=== PATIENT | male | born 1965 | race Caucasian/White ===

== ENCOUNTER 2018-05-20 20:08 | Inpatient (IN) | payer BC ==
[2018-05-20 21:42] LABS: CKMB 1.6 ng/mL (0-6.6); Troponin I Less than 0.010 ng/mL (< 0.028)
[2018-05-21 00:50] LABS: Troponin I Less than 0.010 ng/mL (< 0.028)
[2018-05-21] MEDS ORDERED: Ondansetron PF 4 MG/2 ML Vial IVP PRN (00:56)
[2018-05-21] MEDS ORDERED: Ondansetron ODT 4 MG TAB SL PRN (00:56)
[2018-05-21] MEDS ORDERED: Acetaminophen 325 MG TAB PO PRN ×2 (00:56→16:38)
[2018-05-21 02:57] VITALS: BMI 36.6
[2018-05-21 04:08] LABS: Troponin I Less than 0.010 ng/mL (< 0.028)
[2018-05-21] MEDS: Sulfameth/Trimethoprim SS 400-80MG TAB PO SCH (10:33)
[2018-05-21] MEDS: Citalopram 20 MG TAB PO SCH (10:33)
[2018-05-21] MEDS: Montelukast Sodium 10 mg Tablet PO SCH (10:33)
[2018-05-21] MEDS ORDERED: Dextrose 5% in Water 1,000 ML IV PRN (12:33)
[2018-05-21] MEDS ORDERED: Dextrose 50% Abboject 50 ML SYRINGE IVP PRN (12:33)
[2018-05-21] MEDS: HumaLOG 300 UNITS/3 ML VIAL SC PRN (13:09)
[2018-05-21] MEDS ORDERED: Acetaminophen 325 MG TAB ONE (16:45)
[2018-05-21] MEDS ORDERED: Non-Formulary Item 1 EACH (Metformin Hcl [Metformin Hcl] 1,000 MG) PO SCH (17:00)
[2018-05-21] MEDS: metFORMIN 500 MG TAB PO SCH (17:39)
[2018-05-21] MEDS ORDERED: Atorvastatin Calcium 40 MG TAB PO SCH (21:00)
[2018-05-21] MEDS ORDERED: Ezetimibe 10 MG TAB PO SCH (21:00)
[2018-05-21] MEDS ORDERED: Lisinopril 10 MG TAB PO SCH (21:00)
[2018-05-22] MEDS: HumaLOG 300 UNITS/3 ML VIAL SC PRN ×2 (07:45→10:54)
--- NOTE | 2018-05-22 07:49 | HP ---
PRIMARY CARE PROVIDER: Cris Driscoll MD CHIEF COMPLAINT: Palpitations. HISTORY OF PRESENT ILLNESS: Mr. Wetzel is a pleasant 53-year-old gentleman, who was seen at [facility] on May 21, 2018, following transfer from [place] [facility]. He was preparing for [employer] in [place] yesterday when he felt heart thump in his chest and then prior to his heart race. He reports shortness or breath and lightheadedness soon after the palpitations started, but those symptoms have resolved. He drove to the emergency room at [place]. There, he was found to be in supraventricular tachycardia and was transferred to [facility] for further management. The patient reports that he took Augmentin recently for sinus infection. He is currently on suppressive treatment with Bactrim because of recurrent sinus infection. REVIEW OF SYSTEMS: All other systems reviewed and found to be negative. PAST MEDICAL HISTORY: 1. Hypertension. 2. Dyslipidemia. 3. Diabetes mellitus type 2. PAST SURGICAL HISTORY: None. SOCIAL HISTORY: The patient denies tobacco use, alcohol use, or recreational drug use. FAMILY HISTORY: Significant for myocardial infarction in his father. ALLERGIES: ERYTHROMYCIN. CURRENT MEDICATIONS: 1. Atorvastatin 40 mg at bedtime. 2. Celexa 40 mg daily. 3. Nexium 20 mg daily. 4. Zetia 10 mg at bedtime. 5. Linagliptin 5 mg daily. 6. Victoza 1.8 mg subcutaneously at bedtime. 7. Lisinopril 10 mg at bedtime. 8. Metformin 1000 mg two times a day. 9. Toprol XL 50 mg daily. 10. Montelukast 10 mg daily. 11. Oxymetazoline nasal spray as needed. 12. Bactrim 1 tablet daily. PHYSICAL EXAMINATION: GENERAL: On examination, Mr. Wetzel is awake and alert, not in acute distress. VITAL SIGNS: Blood pressure 120/62, pulse 94, respiratory rate 18, and oxygen saturation 97% on room air. He is afebrile. He is obese, with a BMI of 36.7. EYES: No scleral icterus. No conjunctival pallor. ENT: Moist mucosal membranes. No oropharyngeal erythema or exudates. NECK: Supple, nontender. Trachea is midline. RESPIRATORY: Accessory muscles of breathing are not active. Chest wall movements are symmetric bilaterally. Lungs are clear to auscultation without wheeze, rhonchi, or crepitations. CARDIOVASCULAR: S1 and S2 are heard, regular. Peripheral pulses palpable. ABDOMEN: Soft, nontender. Bowel sounds heard. No hepatomegaly. No splenomegaly. NEUROLOGIC: Cranial nerves 2 through 12 intact. Deep tendon reflexes 2+. MUSCULOSKELETAL: Power is 5/5 in all 4 extremities. SKIN: No rashes or subcutaneous nodules. LYMPHATICS: No cervical lymphadenopathy. PSYCHIATRIC: Normal mood, normal affect. The patient is oriented to person, place, and time. LABS AND INVESTIGATIONS: Mr. Wetzel's labs and investigations were reviewed. I reviewed his electrocardiogram done at [place], which shows supraventricular tachycardia. Followup electrocardiogram showed sinus tachycardia, no ST-T changes to suggest an acute coronary syndrome. I also reviewed his chest x-ray, which does not show any pulmonary infiltrates. He has normal troponin I, normal white count, normal hemoglobin, normal platelet count. Mildly decreased sodium of 134, mildly elevated anion gap of 21, normal blood urea nitrogen, normal creatinine. Normal liver profile and mildly elevated calcium level of 10.5. ASSESSMENT AND PLAN: Mr. Wetzel is a pleasant 53-year-old gentleman, who was seen at [facility] on May 21, 2018. His problem list includes; 1. Supraventricular tachycardia: Mr. Wetzel will be admitted to the hospital for further management. He will be monitored on telemetry. We will check 2D echocardiogram. We will consult Cardiology Service for opinion and help with management. 2. Hypertension: Blood pressure is currently controlled. We will resume his home medications. 3. Dyslipidemia: We will continue statin. 4. Hyponatremia: Mild, likely asymptomatic. 5. Hypercalcemia: Mild, we will recheck. 6. Diabetes mellitus type 2: We will continue home medications and start Accu-Chek and insulin sliding scale. Many thanks for allowing me to participate in your patient's care. Please feel free to contact me with any questions or concerns. LEVEL OF RISK: High. LEVEL OF COMPLEXITY: High. Job ID: [id number]
[2018-05-22] MEDS: Montelukast Sodium 10 mg Tablet PO SCH (09:13)
[2018-05-22] MEDS: Citalopram 20 MG TAB PO SCH (09:13)
[2018-05-22] MEDS: Sulfameth/Trimethoprim SS 400-80MG TAB PO SCH (09:13)
[2018-05-22] MEDS: metFORMIN 500 MG TAB PO SCH (09:14)
[2018-05-22 11:49] VITALS: BP 142/78; TEMP 98.9
--- NOTE | 2018-05-22 22:47 | CON ---
DATE OF CONSULTATION: 05/22/2018 ELECTROPHYSIOLOGY CONSULTATION REASON FOR CONSULTATION: Supraventricular tachycardia. PRIMARY CARE PROVIDER: Cris Driscoll MD HISTORY OF PRESENT ILLNESS: Mr. 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 He was in [place] yesterday, when he began to feel some fluttering in his chest. He shortly thereafter began to experience dizziness and shortness of breath. His heart began to race and his symptoms subsided, but his heart continued to race. He drove to the emergency room in [place] and was found to be in supraventricular tachycardia in the 180 range and was transferred to [facility] for further evaluation and treatment. Actually while he was in the ER at [place], he was given 3 doses of adenosine 6 mg, 6 mg, and then finally 12 mg, which converted him and restored a normal sinus rhythm. Mr. Wetzel was overall in his usual state of health, but had some recurrent sinus infections for which he was on Bactrim. Other than that, he had no recent heart or health concerns. He has never had heart racing or palpitations like this in the past, but has suffered from anxiety and panic attacks that would have associated heart racing and palpitations that would subside with his anxiety. They have never been rapid or sustained as this episode. He would occasionally experience heart rates up to 130 to 140 beats per minute. Again, this is in the remote past of 15 plus years ago. REVIEW OF SYSTEMS: A 12-point review of systems was conducted and is negative except as listed above in the HPI. PAST MEDICAL HISTORY: 1. Hypertension. 2. Dyslipidemia. 3. Type 2 diabetes. 4. History of anxiety and panic attacks. SOCIAL HISTORY: Negative for alcohol, tobacco, or illicit drug use. Professor at [employer]. FAMILY HISTORY: Positive for myocardial infarction with his father. Negative for sudden cardiac . ALLERGIES: ERYTHROMYCIN. HOME MEDICATIONS: Include: 1. Atorvastatin 40 mg at bedtime. 2. Celexa 40 mg daily. 3. Nexium 20 mg daily. 4. Zetia 10 mg at bedtime. 5. Linagliptin 5 mg daily. 6. Victoza 1.8 mg subcutaneously at bedtime. 7. Lisinopril 10 mg at bedtime. 8. Metformin 1000 mg two times a day. 9. Toprol XL 50 mg daily. 10. Montelukast 10 mg daily. 11. Oxymetazoline nasal spray as needed. 12. Bactrim daily. PHYSICAL EXAMINATION: VITAL SIGNS: Most recent vital signs; temperature 98.9, pulse 98, blood pressure 142/78, respirations 20, oxygen is 99% on room air. GENERAL: The patient is alert and oriented. Speech is clear. Affect is appropriate. HEENT: He is normocephalic and atraumatic. Sclerae anicteric. EOMs are intact. Oral mucosa is moist and pink. NECK: Supple without jugular venous distention. HEART: Heart rate is regularly regular with crisp S1 and S2. PMI is nondisplaced. LUNGS: Clear to auscultation bilaterally without wheezes, crackles, or rhonchi. ABDOMEN: Obese, soft, nontender without palpable masses. Hepatojugular reflux is negative. EXTREMITIES: Warm and dry to touch without clubbing, cyanosis, or edema. NEUROLOGIC: Grossly intact and nonfocal with cranial nerves 2 through 12, and his gait is stable. LABORATORY DATA: EKG largely reflects sinus rhythm, although a single 12-lead from when he was transferred and reflects narrow complex rapid SVT, likely AVNRT at a rate of 188 beats per minute. Hematology was reviewed and unremarkable. Chemistry; potassium 3.6, creatinine 1.12, ALT and AST were within normal limits. Troponin was negative. IMPRESSION: 1. 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 2. Hypertension. RECOMMENDATIONS: We discussed supraventricular tachycardia treatment options and process with Mr. Wetzel. We discussed treating this medically with AV timmy blocking agents, powerful antiarrhythmics versus ablation. I did offer him an ablation procedure tomorrow, but at this time in his school year he is unable to accommodate that with this schedule as it nears the end of the semester. At this time, he favors increasing his betablocker as tolerated to prevent recurrence and followup as an outpatient in our clinic in the early part of the New Year to plan and we will forward with an ablation and EP study. He was taking metoprolol 50 mg at home. We will increase his Toprol to 100 mg p.o. daily if tolerated, otherwise he can try 75 mg. This was discussed with the hospitalist as well. Thank you for allowing us to participate in the care of this patient. Job ID: [id number]
--- NOTE | 2018-05-23 01:56 | DIS ---
DATE OF ADMISSION: 05/21/2018 DATE OF DISCHARGE: 05/22/2018 PRIMARY CARE DOCTOR: Cris Driscoll MD DISCHARGE DIAGNOSIS: Supraventricular tachycardia. CONDITION OF PATIENT ON THE DAY OF DISCHARGE: Stable. I assessed Mr. Wetzel on the day of discharge. He denies any chest pain or shortness of breath. Vital signs are stable. S1 and S2 are heard, regular. Lungs are clear to auscultation bilaterally. DISCHARGE MEDICATIONS: 1. Oxymetazoline nasal spray has been discontinued. 2. He has been advised by Electrophysiology Service to increase his metoprolol to 75 mg 2 times a day, if his blood pressure tolerates. Otherwise, no change was made to his pre-admission home medications as dictated on my history and physical note dated May 21, 2018. CONSULTATIONS DURING THIS HOSPITALIZATION: 1. Electrophysiology, Dr. Molina. 2. Cardiology, Dr. Schumacher. HISTORY OF HOSPITAL COURSE: Mr. Wetzel is a pleasant 53-year-old gentleman, who was admitted to [facility] on May 21, 2018 for supraventricular tachycardia. Please refer to my history and physical note dated May 21, 2018 for further details. He had converted to supraventricular tachycardia shortly prior to arrival at this facility. He had 2D echocardiogram, which showed left ventricular ejection fraction of 50% to 55%, E/A flow reversal, suggestive of diastolic dysfunction, mild mitral regurgitation, and mild tricuspid regurgitation. He was seen by Cardiology and Electrophysiology Services. He was advised ablation. However, Mr. Wetzel did not wish to stay in the hospital because he had to attend to other matters. He has been cleared for discharge by Electrophysiology Service and they will follow with him to arrange for ablation as an outpatient. His lowest blood pressure during this hospitalization was 111/56. As mentioned, he has been advised to try to increase his metoprolol dose to 75 mg 2 times a day and keep track of his blood pressure and heart rate 3 times a day and shows the readings to his primary care provider. Many thanks for allowing me to participate in your patient's care. Please feel free to contact me with any questions or concerns. DISCHARGE DESTINATION: Home. TOTAL AMOUNT OF TIME SPENT COORDINATING THIS DISCHARGE: 31 minutes. Job ID: [id number]
== END 2018-05-22 15:08 | disposition home or self-care (01) | DRG 309 ==
LOC: ERS 20:08 → 2SE 05-21 00:50
PROVIDERS: ADMIT Internal Medicine; ATTEND Internal Medicine
PROC: B246ZZZ Ultrasonography of Right and Left Heart (ICD-10-PCS; principal; 2018-05-21)
DX: I47.1 Supraventricular tachycardia (principal); E87.1 Hypo-osmolality and hyponatremia; I10 Essential (primary) hypertension; E78.5 Hyperlipidemia, unspecified; E11.9 Type 2 diabetes mellitus without complications; Z79.84 Long term (current) use of oral hypoglycemic drugs; E83.52 Hypercalcemia; F41.0 Panic disorder [episodic paroxysmal anxiety]
CPT/HCPCS: 36415; 36416; 84484; 85379; 93005; 93306; 96360

== ENCOUNTER 2018-07-10 06:31 | Outpatient (CLI) | payer BC ==
[2018-07-10 14:15] LABS: Hemoglobin 16.6 g/dL (14.0-18.0); Mean Corpuscular HGB CONC 33.7 g/dL (32.0-36.0); Mean Corpuscular Hemoglobin 29.2 pg (27.0-31.0); Mean Corpuscular Volume 86.7 fL (78.0-98.0); Mean Platelet Volume 8.3 fL (7.4-10.4); Platelet Count 226 thou/uL (130-400); RBC Distribution Width 12.7 % (11.5-14.5); Red Blood Cell (RBC) Count 5.66 mill/uL (4.70-6.10); White Blood Cell (WBC) Count 6.7 thou/uL (4.8-10.8)
[2018-07-10 14:22] LABS: PTT 25.3 SEC (22.9-36.1); Prothrombin Time 13.3 SEC (12.0-14.7)
[2018-07-10 14:36] LABS: Anion Gap 17 mmol/L (10-20); BUN (Urea Nitrogen) 19 mg/dL (8.4-25.7); Calc. Creatinine Clearance 0 mL/min (70-130); Calcium 10.3 mg/dL (7.8-10.44); Carbon Dioxide 18 mmol/L (22-29); Chloride 102 mmol/L (98-107); Estimated GFR-MDRD 74; Glucose 289 mg/dL (70-105); Potassium 4.2 mmol/L (3.5-5.1); Sodium 133 mmol/L (136-145)
== END 2018-07-10 06:32 | disposition home or self-care (01) ==
LOC: LABBT 06:31
PROVIDERS: ATTEND Internal Medicine Cardiovascular Disease
DX: Z01.818 Encounter for other preprocedural examination (principal); I47.1 Supraventricular tachycardia
CPT/HCPCS: 80048; 85027; 85610; 85730; 93005; 93010

== ENCOUNTER 2018-07-14 07:13 | Day surgery (SDC) | payer BC ==
[2018-07-10 13:17] VITALS: BMI 36.9
[2018-07-14] MEDS ORDERED: Midazolam HCl 2 mg/2 ml Vial IVP SCH (08:45)
[2018-07-14] MEDS ORDERED: Midazolam HCl 2 mg/2 ml Vial ONE ×2 (08:58→10:17)
[2018-07-14] MEDS ORDERED: Heparin 10,000 UNITS/1 ML VIAL ONE (09:01)
[2018-07-14] MEDS ORDERED: Meperidine HCl/PF 25 MG/ML VIAL ONE (10:17)
[2018-07-14] MEDS ORDERED: Isoproterenol 0.2 MG/1 ML AMP ONE ×2 (11:09)
[2018-07-14] MEDS ORDERED: PROPOFOL 200 MG/20 ML VIAL ONE (12:16)
[2018-07-14] MEDS ORDERED: Lidocaine 1% PF 5 ML VIAL ONE (12:16)
--- NOTE | 2018-07-14 18:19 | OP ---
DATE OF PROCEDURE: 07/14/2018 This is an electrophysiology study and radiofrequency ablation report. PRIMARY CARE PHYSICIAN: Cris Driscoll MD REASON FOR PROCEDURE: Mr. Wetzel is a 53-year-old man with history of palpitations and EKG documented adenosine-terminable SVT. He is here for EP study and ablation procedure. DESCRIPTION OF PROCEDURE: The patient received propofol by Anesthesia specialist. After adequate level of sedation achieved, the left and right femoral venous area was prepped, draped, anesthetized with subcutaneous lidocaine and with ultrasound guidance, both veins were cannulated x2. From the left femoral vein, 6 and an 8-Kenyan sheaths were introduced, through which an octapolar and a decapolar catheter were advanced to the right ventricle, His bundle, right atrium, and CS position. Pacing, and mapping recording were performed at each location. Following findings were noted. Baseline cycle length of 550 milliseconds, OR 128, QRS 66, QT 341 milliseconds, AH 70 milliseconds, HV 59 milliseconds, AV Wenckebach cycle length was 280 milliseconds, retrograde Wenckebach cycle length was 260 milliseconds. Concentric retrograde VA conduction was seen. No definite dual AV timmy pathway demonstrated initially with 500 milliseconds drive train and single extrastimuli decremented to the refractory period, which was . Burst atrial pacing though was unable to induce a 1:1 supraventricular tachycardia matching the presentation with cycle lengths of 307 millisecond. The induction was consistent with AVNRT with prolonged AV timing of the initial beat, cycle length was 300 milliseconds. Ventricular overdrive pacing performed, which demonstrated VA-VA pattern at the end of the pacing train. In fact, we did see pseudo VA-AV pattern as well. Following that right ventricular sheath was inserted in a similar fashion through the left, an 8-Kenyan sheath through which a 4 mm ablation catheter was advanced to the right atrium, CS, His bundle area. A 3D map of these structures was obtained. Following that, after clear delineation of His bundle, we located the slow pathway area and a total of 7 ablation lesions were placed in this area, longest 1 minute, total duration 2 minutes and 46 seconds at 40 vitale and 50 degree During the ablation, we were able to see junctional beats. No AV block was noted. Following that, the testing was repeated, where the AV Wenckebach cycle length was still about 290 milliseconds, but no more AV timmy reentry tachycardia was inducible. Burst atrial pacing was attempted down to 200 milliseconds and no other atrial arrhythmias were also seen. CONCLUSION: 1. Clearly inducible AV timym reentry tachycardia with lack of clear dual AV timmy physiology. 2. Slow pathway modification eliminated the dual AV timmy physiology. 3. No evidence of accessory pathway. 4. Normal sinus and AV timmy function, in fact, baseline sinus tachycardia persist. 5. Isuprel administration did not make the patient re-inducible despite repeated attempts. PLAN: Routine followup. Job ID: [id number]
== END 2018-07-14 14:44 | disposition home or self-care (01) ==
LOC: CCL 07:13
PROVIDERS: ATTEND Internal Medicine Cardiovascular Disease
PROC: 4A023FZ Measurement of Cardiac Rhythm, Percutaneous Approach (ICD-10-PCS; principal; 2018-07-14)
PROC: 02K83ZZ Map Conduction Mechanism, Percutaneous Approach (ICD-10-PCS; principal; 2018-07-14)
PROC: 4A0234Z Measurement of Cardiac Electrical Activity, Percutaneous Approach (ICD-10-PCS; principal; 2018-07-14)
PROC: 02583ZZ Destruction of Conduction Mechanism, Percutaneous Approach (ICD-10-PCS; principal; 2018-07-14)
DX: I47.1 Supraventricular tachycardia (principal); I10 Essential (primary) hypertension; E78.5 Hyperlipidemia, unspecified; E11.9 Type 2 diabetes mellitus without complications; F41.9 Anxiety disorder, unspecified; F41.0 Panic disorder [episodic paroxysmal anxiety]; Z88.1 Allergy status to other antibiotic agents; Z79.84 Long term (current) use of oral hypoglycemic drugs; Z79.2 Long term (current) use of antibiotics; Z79.51 Long term (current) use of inhaled steroids; Z79.899 Other long term (current) drug therapy
CPT/HCPCS: 76942; 93005; 93010; 93613; 93623; 93653; C1730; C1769; J1644; J2001; J2175; J2250; J2704

== ENCOUNTER 2020-09-10 13:21 | Emergency (ER) | payer BC ==
[2020-09-10 14:11] LABS: #Basophils 0.1 thou/uL (0.0-0.2); #Eosinphils 0.1 thou/uL (0.0-0.7); #Lymphocytes 1.6 thou/uL (1.20-3.40); #Monocytes 0.7 thou/uL (0.11-0.59); #Neutrophils 4.9 thou/uL (1.40-6.50); %Eosinophils 1.1 % (0.0-10.0); %Lymphocytes 21.2 % (21.0-51.0); %Monocytes 9.3 % (0.0-10.0); %Neutrophils 67.5 % (42.0-75.0); Hemoglobin 15.7 g/dL (14.0-18.0); Mean Corpuscular HGB CONC 35.1 g/dL (32.0-36.0); Mean Corpuscular Volume 85.4 fL (78.0-98.0); Mean Platelet Volume 8.1 fL (7.4-10.4); Platelet Count 210 thou/uL (130-400); RBC Distribution Width 12.4 % (11.5-14.5); Red Blood Cell (RBC) Count 5.24 mill/uL (4.70-6.10); White Blood Cell (WBC) Count 7.3 thou/uL (4.8-10.8)
[2020-09-10 14:38] LABS: Acetaminophen Less than 6.0 mcg/mL (10.0-30.0); Alcohol Less than 10 mg/dL (Less than 10); Salicylate Less than 8.0 mg/dL (15.0-30.0)
[2020-09-10 14:40] LABS: ALT (SGPT) 20 U/L (8-55); AST (SGOT) 18 U/L (5-34); Albumin 4.2 g/dL (3.5-5.0); Alkaline Phosphatase 88 U/L (40-110); Anion Gap 16 mmol/L (10-20); BUN (Urea Nitrogen) 18 mg/dL (8.4-25.7); Bilirubin, Total 0.5 mg/dL (0.2-1.2); Calc. Creatinine Clearance 0 mL/min (70-130); Calcium 9.6 mg/dL (7.8-10.44); Carbon Dioxide 19 mmol/L (22-29); Chloride 103 mmol/L (98-107); Globulin 2.7 g/dL (2.4-3.5); Glucose 297 mg/dL (70-105); Potassium 4.4 mmol/L (3.5-5.1); Protein, Total 6.9 g/dL (6.0-8.3); Sodium 134 mmol/L (136-145)
[2020-09-10 17:25] LABS: Amphetamine Not Detected (NotDetected); Barbiturates Screen Not Detected (NotDetected); Benzodiazepine Screen Not Detected (NotDetected); Cocaine Metabolite Screen Not Detected (NotDetected); Medtox Control Line Valid? VALID (VALID); Medtox Reader # READER 4; Methadone Not Detected (NotDetected); Methamphetamine Not Detected (NotDetected); Opiate Screen Not Detected (NotDetected); Oxycodone Screen Not Detected (NotDetected); Phencyclidine (PCP) Not Detected (NotDetected); THC/Cannabinoid Screen Not Detected (NotDetected); Tricyclic Screen Not Detected (NotDetected)
== END 2020-09-10 19:04 | disposition home or self-care (01) ==
LOC: ERS 13:21
DX: R00.0 Tachycardia, unspecified (principal); J32.9 Chronic sinusitis, unspecified; I10 Essential (primary) hypertension; E78.00 Pure hypercholesterolemia, unspecified; E11.9 Type 2 diabetes mellitus without complications; Z79.899 Other long term (current) drug therapy; Z79.84 Long term (current) use of oral hypoglycemic drugs
CPT/HCPCS: 36415; 71045; 80053; 80306; 80307; 83735; 84443; 84484; 85025; 85379; 93005

== ENCOUNTER 2021-04-03 15:37 | Outpatient (CLI) | payer BC | END 2021-04-03 15:38 | disposition home or self-care (01) | LOC: CTENTCT 15:37 | PROVIDERS: ATTEND Specialist | DX: J32.9 Chronic sinusitis, unspecified (principal) | CPT/HCPCS: 70486 ==

== ENCOUNTER 2023-12-23 23:26 | Emergency (ER) | payer BC ==
[2023-12-24 00:38] LABS: #Basophils 0.06 10x3/uL (0.0-0.2); %Basophils 0.8 % (0.0-1.0); %Eosinophils 1.9 % (0.0-10.0); %Lymphocytes 17.4 % (21.0-51.0); %Monocytes 8.8 % (0.0-10.0); %Neutrophils 70.6 % (42.0-75.0); Hemoglobin 13.5 g/dL (14.0-18.0); Mean Corpuscular HGB CONC 32.1 g/dL (32.0-36.0); Mean Corpuscular Hemoglobin 27.9 pg (27.0-31.0); Mean Corpuscular Volume 86.8 fL (78.0-98.0); Platelet Count 204 10x3/uL (130-400); RBC Distribution Width 14.5 % (11.5-14.5); Red Blood Cell (RBC) Count 4.84 mill/uL (4.70-6.10)
[2023-12-24 00:56] LABS: ALT (SGPT) 25 U/L (8-55); AST (SGOT) 25 U/L (5-34); Albumin 3.3 g/dL (3.5-5.0); Alkaline Phosphatase 67 U/L (40-110); Anion Gap 19 mmol/L (10-20); BUN (Urea Nitrogen) 18 mg/dL (8.4-25.7); Bilirubin, Total 0.4 mg/dL (0.2-1.2); Calc. Creatinine Clearance 0 mL/min (70-130); Calcium 9.6 mg/dL (7.8-10.44); Carbon Dioxide 15 mmol/L (22-29); Chloride 111 mmol/L (98-107); Estimated GFR 105; Globulin 2.6 g/dL (2.4-3.5); Glucose 150 mg/dL (70-105); Potassium 3.9 mmol/L (3.5-5.1); Protein, Total 5.9 g/dL (6.0-8.3); Sodium 141 mmol/L (136-145)
[2023-12-24 00:59] LABS: Troponin I Less than 0.010 ng/mL (< 0.028)
[2023-12-24 02:53] LABS: Bilirubin Negative (Negative); Blood, Urine Negative (Negative); CAUTI Indications for Culture Dysuria,urgency,freq; Clarity Clear (Clear); Glucose, Urine (Dipstick) Greater than 1000 mg/dL (Negative); Ketone, Urine Negative (Negative); Leukocyte 500 Leu/uL (Negative); Nitrite Negative (Negative); Protein, Urine (Dipstick) Negative (Neg-Trace); RBC/HPF 0-3 HPF (0-3); Squamous Epithelial None Seen HPF (0-3); Urobilinogen Normal mg/dL (Less than 2); WBC/HPF Greater than 50 HPF (0-3)
[2023-12-24 02:59] LABS: Bacteria/HPF 1+ HPF (None Seen)
[2023-12-24 03:00] LABS: Urine Culture Reflex Yes Yes
[2023-12-24 03:27] LABS: Lactic Acid 2.5 mmol/L (0.5-2.2)
[2023-12-24 04:22] LABS: Anion Gap 15 mmol/L (10-20); BUN (Urea Nitrogen) 16 mg/dL (8.4-25.7); Calc. Creatinine Clearance 0 mL/min (70-130); Calcium 9.3 mg/dL (7.8-10.44); Carbon Dioxide 17 mmol/L (22-29); Chloride 113 mmol/L (98-107); Estimated GFR 104; Glucose 148 mg/dL (70-105); Potassium 3.5 mmol/L (3.5-5.1); Sodium 141 mmol/L (136-145)
[2023-12-24] MEDS ORDERED: Sodium Chloride 0.9% 100 ML ONE (04:22)
[2023-12-24] MEDS ORDERED: cefTRIAXone (ROCEPHIN) 2 GM VIAL ONE (04:22)
[2023-12-24 07:05] LABS: Lactic Acid 2.1 mmol/L (0.5-2.2)
== END 2023-12-24 07:25 | disposition home or self-care (01) ==
LOC: ERS 23:26
DX: N39.0 Urinary tract infection, site not specified (principal); E86.0 Dehydration; R00.0 Tachycardia, unspecified; I25.10 Atherosclerotic heart disease of native coronary artery without angina pectoris; I11.0 Hypertensive heart disease with heart failure; I50.9 Heart failure, unspecified; E11.9 Type 2 diabetes mellitus without complications
CPT/HCPCS: 36415; 71045; 80053; 81001; 83605; 84443; 84484; 85025; 87040; 87077; 87086; 87186; 93005; 96374; J0696; J3490

== ENCOUNTER 2024-01-06 21:18 | Inpatient (IN) | payer BC ==
[2024-01-07] MEDS ORDERED: Glucagon 1 MG/ML KIT IM PRN (00:04)
[2024-01-07] MEDS ORDERED: Dextrose 5% in Water 1,000 ML IV PRN (00:04)
[2024-01-07] MEDS ORDERED: Dextrose 50% Abboject 50 ML SYRINGE SLOW IVP PRN (00:04)
[2024-01-07 00:07] VITALS: BMI 27.1
[2024-01-07] MEDS ORDERED: Insulin Lispro 100 UNIT/ML 10 ML VIAL SC PRN (00:18)
[2024-01-07] MEDS: Meropenem 1 GM in Sodium Chloride 0.9% 100 ML IVPB SCH (00:48)
[2024-01-07] MEDS: Acetaminophen 325 MG TAB PO PRN (00:48)
[2024-01-07 07:00] LABS: #Basophils 0.04 10x3/uL (0.0-0.2); %Basophils 0.6 % (0.0-1.0); %Eosinophils 2.8 % (0.0-10.0); %Lymphocytes 16.9 % (21.0-51.0); %Monocytes 13.9 % (0.0-10.0); %Neutrophils 65.3 % (42.0-75.0); Hematocrit 39.8 % (42.0-52.0); Hemoglobin 12.7 g/dL (14.0-18.0); Mean Corpuscular HGB CONC 31.9 g/dL (32.0-36.0); Mean Corpuscular Hemoglobin 26.5 pg (27.0-31.0); Mean Corpuscular Volume 83.1 fL (78.0-98.0); Mean Platelet Volume 10.5 fL (7.4-10.4); Platelet Count 151 10x3/uL (130-400); RBC Distribution Width 14.6 % (11.5-14.5); Red Blood Cell (RBC) Count 4.79 mill/uL (4.70-6.10)
[2024-01-07 07:21] LABS: ALT (SGPT) 15 U/L (8-55); AST (SGOT) 18 U/L (5-34); Albumin 2.8 g/dL (3.5-5.0); Alkaline Phosphatase 61 U/L (40-110); Anion Gap 10 mmol/L (10-20); BUN (Urea Nitrogen) 9 mg/dL (8.4-25.7); Bilirubin, Total 0.5 mg/dL (0.2-1.2); Calc. Creatinine Clearance 125 mL/min (70-130); Carbon Dioxide 24 mmol/L (22-29); Chloride 109 mmol/L (98-107); Estimated GFR 104; Globulin 2.7 g/dL (2.4-3.5); Glucose 105 mg/dL (70-105); Potassium 3.5 mmol/L (3.5-5.1); Protein, Total 5.5 g/dL (6.0-8.3); Sodium 139 mmol/L (136-145)
[2024-01-07] MEDS: Enoxaparin 40 MG (0.4 mL) SYRINGE SC SCH (08:15)
[2024-01-07] MEDS ORDERED: Polyethylene Glycol 3350 17 GM Packet PO PRN (10:09)
[2024-01-07] MEDS ORDERED: clonazePAM 1 MG TAB PO PRN (10:32)
[2024-01-07] MEDS: Insulin Lispro 100 UNIT/ML 10 ML VIAL SC PRN (12:26)
[2024-01-07] MEDS: busPIRone HCl 5 MG TAB PO SCH ×2 (13:04→15:42)
[2024-01-07] MEDS ORDERED: metFORMIN 500 MG TAB PO SCH (17:00)
[2024-01-07] MEDS: Atorvastatin Calcium 40 MG TAB PO SCH (20:03)
[2024-01-07] MEDS: Icosapent Ethyl 1 GM CAPSULE PO SCH (20:04)
[2024-01-07] MEDS: Cyclobenzaprine 10 MG TAB PO PRN (20:05)
[2024-01-07] MEDS: Zolpidem Tartrate 5 MG TAB PO SCH (20:05)
[2024-01-07] MEDS ORDERED: LIRAGLUTIDE 0.6 MG/0.1 ML SC SCH (21:00)
[2024-01-08 07:07] LABS: #Basophils Less than 0.03 10x3/uL (0.0-0.2); %Basophils 0.3 % (0.0-1.0); %Eosinophils 2.1 % (0.0-10.0); %Monocytes 14.6 % (0.0-10.0); %Neutrophils 65.7 % (42.0-75.0); Hematocrit 37.7 % (42.0-52.0); Hemoglobin 12.5 g/dL (14.0-18.0); Mean Corpuscular HGB CONC 33.2 g/dL (32.0-36.0); Mean Corpuscular Hemoglobin 27.5 pg (27.0-31.0); Mean Platelet Volume 10.5 fL (7.4-10.4); Platelet Count 166 10x3/uL (130-400); RBC Distribution Width 14.6 % (11.5-14.5); Red Blood Cell (RBC) Count 4.54 mill/uL (4.70-6.10)
[2024-01-08 07:39] LABS: ALT (SGPT) 15 U/L (8-55); AST (SGOT) 21 U/L (5-34); Albumin 2.8 g/dL (3.5-5.0); Alkaline Phosphatase 59 U/L (40-110); Anion Gap 10 mmol/L (10-20); BUN (Urea Nitrogen) 10 mg/dL (8.4-25.7); Bilirubin, Total 0.5 mg/dL (0.2-1.2); Calc. Creatinine Clearance 149 mL/min (70-130); Calcium 9.3 mg/dL (7.8-10.44); Carbon Dioxide 22 mmol/L (22-29); Chloride 106 mmol/L (98-107); Estimated GFR 110; Globulin 2.8 g/dL (2.4-3.5); Glucose 133 mg/dL (70-105); Potassium 3.4 mmol/L (3.5-5.1); Protein, Total 5.6 g/dL (6.0-8.3); Sodium 135 mmol/L (136-145)
[2024-01-08] MEDS: Loratadine 10 MG TAB PO SCH (08:43)
[2024-01-08] MEDS: Amiodarone 200 MG TAB PO SCH (08:43)
[2024-01-08] MEDS: Pantoprazole DR 40 MG TAB PO SCH (08:43)
[2024-01-08] MEDS: Aripiprazole 10 MG TAB PO SCH (08:43)
[2024-01-08] MEDS: Lisinopril 5 MG TAB PO SCH (08:43)
[2024-01-08] MEDS: Aspirin 81 mg Enteric Coated Tablet PO SCH (08:43)
[2024-01-08] MEDS: Montelukast Sodium 10 mg Tablet PO SCH (08:44)
[2024-01-08] MEDS: Venlafaxine HCl XR 75 MG CAP PO SCH (08:44)
[2024-01-08] MEDS: Ezetimibe 10 MG TAB PO SCH (08:44)
[2024-01-08] MEDS: Tamsulosin HCl 0.4 MG CAP PO SCH (08:44)
[2024-01-08] MEDS: Multivit, Therapeutic 1 TAB PO SCH (08:44)
[2024-01-08] MEDS: Fluticasone Propionate Nasal Spray 16 gm Bottle NASAL SCH (08:52)
[2024-01-08] MEDS: Potassium Chloride 20 MEQ TAB PO SCH (09:28)
[2024-01-08] MEDS ORDERED: Ondansetron ODT 4 MG TAB PO PRN (11:11)
[2024-01-08] MEDS: Oxybutynin 5 MG TAB PO SCH (12:03)
[2024-01-09 06:59] LABS: #Basophils 0.04 10x3/uL (0.0-0.2); %Basophils 0.7 % (0.0-1.0); %Lymphocytes 19.8 % (21.0-51.0); %Monocytes 14.8 % (0.0-10.0); %Neutrophils 61.5 % (42.0-75.0); Hematocrit 38.3 % (42.0-52.0); Hemoglobin 12.6 g/dL (14.0-18.0); Mean Corpuscular HGB CONC 32.9 g/dL (32.0-36.0); Mean Corpuscular Hemoglobin 26.5 pg (27.0-31.0); Mean Corpuscular Volume 80.6 fL (78.0-98.0); Mean Platelet Volume 10.6 fL (7.4-10.4); Platelet Count 190 10x3/uL (130-400); RBC Distribution Width 14.5 % (11.5-14.5); Red Blood Cell (RBC) Count 4.75 mill/uL (4.70-6.10)
[2024-01-09 07:30] LABS: ALT (SGPT) 17 U/L (8-55); AST (SGOT) 20 U/L (5-34); Albumin 2.8 g/dL (3.5-5.0); Alkaline Phosphatase 67 U/L (40-110); Anion Gap 13 mmol/L (10-20); BUN (Urea Nitrogen) 12 mg/dL (8.4-25.7); Bilirubin, Total 0.6 mg/dL (0.2-1.2); Calc. Creatinine Clearance 138 mL/min (70-130); Calcium 9.3 mg/dL (7.8-10.44); Carbon Dioxide 24 mmol/L (22-29); Chloride 107 mmol/L (98-107); Estimated GFR 107; Globulin 2.9 g/dL (2.4-3.5); Glucose 135 mg/dL (70-105); Potassium 3.6 mmol/L (3.5-5.1); Protein, Total 5.7 g/dL (6.0-8.3); Sodium 140 mmol/L (136-145)
[2024-01-09] MEDS: Oxybutynin 5 MG TAB PO SCH (08:43)
[2024-01-10 06:59] LABS: #Basophils 0.05 10x3/uL (0.0-0.2); %Basophils 0.8 % (0.0-1.0); %Eosinophils 3.1 % (0.0-10.0); %Lymphocytes 15.1 % (21.0-51.0); %Neutrophils 63.5 % (42.0-75.0); Hematocrit 39.7 % (42.0-52.0); Hemoglobin 12.8 g/dL (14.0-18.0); Mean Corpuscular HGB CONC 32.2 g/dL (32.0-36.0); Mean Corpuscular Hemoglobin 26.5 pg (27.0-31.0); Mean Corpuscular Volume 82.2 fL (78.0-98.0); Mean Platelet Volume 10.4 fL (7.4-10.4); Platelet Count 181 10x3/uL (130-400); RBC Distribution Width 14.4 % (11.5-14.5); Red Blood Cell (RBC) Count 4.83 mill/uL (4.70-6.10)
[2024-01-10 07:26] LABS: ALT (SGPT) 21 U/L (8-55); AST (SGOT) 25 U/L (5-34); Albumin 2.9 g/dL (3.5-5.0); Alkaline Phosphatase 69 U/L (40-110); Anion Gap 12 mmol/L (10-20); BUN (Urea Nitrogen) 13 mg/dL (8.4-25.7); Bilirubin, Total 0.6 mg/dL (0.2-1.2); Calc. Creatinine Clearance 147 mL/min (70-130); Calcium 9.1 mg/dL (7.8-10.44); Carbon Dioxide 21 mmol/L (22-29); Chloride 108 mmol/L (98-107); Estimated GFR 109; Globulin 2.9 g/dL (2.4-3.5); Glucose 129 mg/dL (70-105); Potassium 3.5 mmol/L (3.5-5.1); Protein, Total 5.8 g/dL (6.0-8.3); Sodium 137 mmol/L (136-145)
[2024-01-10] MEDS ORDERED: Acetaminophen 325 MG TAB PO PRN (08:35)
[2024-01-10] MEDS ORDERED: Lidocaine 1% PF 5 ML VIAL ONE (10:09)
[2024-01-10] MEDS ORDERED: Sodium Bicarbonate 2.5 MEQ/5 ML SDV ONE (10:09)
[2024-01-11 05:37] LABS: #Basophils 0.03 10x3/uL (0.0-0.2); %Basophils 0.5 % (0.0-1.0); %Eosinophils 3.2 % (0.0-10.0); %Lymphocytes 15.4 % (21.0-51.0); %Monocytes 14.1 % (0.0-10.0); %Neutrophils 66.3 % (42.0-75.0); Hematocrit 39.3 % (42.0-52.0); Hemoglobin 12.8 g/dL (14.0-18.0); Mean Corpuscular HGB CONC 32.6 g/dL (32.0-36.0); Mean Corpuscular Hemoglobin 26.9 pg (27.0-31.0); Mean Corpuscular Volume 82.6 fL (78.0-98.0); Mean Platelet Volume 10.3 fL (7.4-10.4); Platelet Count 199 10x3/uL (130-400); RBC Distribution Width 14.4 % (11.5-14.5); Red Blood Cell (RBC) Count 4.76 mill/uL (4.70-6.10)
[2024-01-11 06:03] LABS: ALT (SGPT) 18 U/L (8-55); AST (SGOT) 21 U/L (5-34); Albumin 2.9 g/dL (3.5-5.0); Alkaline Phosphatase 70 U/L (40-110); Anion Gap 14 mmol/L (10-20); BUN (Urea Nitrogen) 14 mg/dL (8.4-25.7); Bilirubin, Total 0.5 mg/dL (0.2-1.2); Calc. Creatinine Clearance 132 mL/min (70-130); Calcium 9.3 mg/dL (7.8-10.44); Carbon Dioxide 22 mmol/L (22-29); Chloride 107 mmol/L (98-107); Estimated GFR 106; Globulin 3.1 g/dL (2.4-3.5); Glucose 164 mg/dL (70-105); Potassium 3.7 mmol/L (3.5-5.1); Sodium 139 mmol/L (136-145)
[2024-01-11 09:00] VITALS: BP 135/83; TEMP 98.6
[2024-01-11] MEDS: Ertapenem 1 GM in Sodium Chloride 0.9% 100 ML IVPB SCH (11:39)
[2024-01-11] MEDS: metFORMIN 500 MG TAB PO SCH (11:47)
== END 2024-01-11 14:25 | disposition home health service (06) | DRG 690 ==
LOC: INTOOBSV 23:36 → T4-B 23:36 → OBSVTOIN 01-08 11:11
PROVIDERS: ADMIT Family Medicine; ATTEND Family Medicine
PROC: 02HV33Z Insertion of Infusion Device into Superior Vena Cava, Percutaneous Approach (ICD-10-PCS; principal; 2024-01-10)
PROC: B5181ZA Fluoroscopy of Superior Vena Cava using Low Osmolar Contrast, Guidance (ICD-10-PCS; 2024-01-10)
PROC: 3E04329 Introduction of Other Anti-infective into Central Vein, Percutaneous Approach (ICD-10-PCS; 2024-01-10)
DX: N39.0 Urinary tract infection, site not specified (principal); I10 Essential (primary) hypertension; E78.5 Hyperlipidemia, unspecified; E11.65 Type 2 diabetes mellitus with hyperglycemia; F32.9 Major depressive disorder, single episode, unspecified; F41.9 Anxiety disorder, unspecified; I25.10 Atherosclerotic heart disease of native coronary artery without angina pectoris; B96.89 Other specified bacterial agents as the cause of diseases classified elsewhere; J32.9 Chronic sinusitis, unspecified; Z53.9 Procedure and treatment not carried out, unspecified reason; Z88.1 Allergy status to other antibiotic agents; Z79.899 Other long term (current) drug therapy; Z79.82 Long term (current) use of aspirin; Z95.1 Presence of aortocoronary bypass graft
CPT/HCPCS: 36415; 36416; 36569; 76937; 77001; 80053; 85025; 96372; 96374; 96376; C1751; G0378; J1335; J1650; J1815; J2185; J3490

== ENCOUNTER 2024-02-16 09:51 | Day surgery (SDC) | payer BC ==
[2024-02-06 11:36] VITALS: BMI 26.6
[2024-02-16] MEDS ORDERED: Lidocaine 2% PF 5 ML VIAL ONE (10:42)
[2024-02-16] MEDS ORDERED: PROPOFOL 20 ML ONE ×2 (10:42→12:24)
[2024-02-16] MEDS ORDERED: LevoFLOXacin D5W 500 mg (100 mL) BAG ONE (11:05)
[2024-02-16] MEDS ORDERED: fentaNYL PF 100 MCG/2 ML SYRINGE ONE ×2 (11:42→12:24)
[2024-02-16] MEDS ORDERED: Ondansetron PF 4 MG/2 ML Vial ONE (11:53)
[2024-02-16] MEDS ORDERED: Dexamethasone 4 mg/ml Vial ONE (11:53)
[2024-02-16] MEDS ORDERED: ePHEDrine Sulfate 50 MG/10 ML VIAL ONE (11:58)
[2024-02-16] MEDS ORDERED: Sodium Chloride 0.9% 100 ML ONE (12:36)
[2024-02-16] MEDS ORDERED: Phenylephrine 10 MG/ML VIAL ONE (12:37)
[2024-02-16] MEDS ORDERED: Oxybutynin 5 MG TAB ONE (13:19)
[2024-02-16] MEDS ORDERED: Phenazopyridine HCl 100 MG TAB ONE (13:20)
[2024-02-16] MEDS ORDERED: HYDROcodone/Acetaminophen 5/325 mg Tablet ONE (14:06)
== END 2024-02-16 14:54 | disposition home or self-care (01) ==
LOC: SDC 09:51
PROVIDERS: ATTEND Urology
PROC: 0VT08ZZ Resection of Prostate, Via Natural or Artificial Opening Endoscopic (ICD-10-PCS; principal; 2024-02-16)
DX: N40.1 Benign prostatic hyperplasia with lower urinary tract symptoms (principal); N13.8 Other obstructive and reflux uropathy; E11.65 Type 2 diabetes mellitus with hyperglycemia; I11.9 Hypertensive heart disease without heart failure; I25.118 Atherosclerotic heart disease of native coronary artery with other forms of angina pectoris; E78.5 Hyperlipidemia, unspecified; K21.9 Gastro-esophageal reflux disease without esophagitis; Z88.1 Allergy status to other antibiotic agents; Z79.84 Long term (current) use of oral hypoglycemic drugs; Z79.82 Long term (current) use of aspirin; Z79.899 Other long term (current) drug therapy
CPT/HCPCS: 88305; A4333; J1100; J1956; J2001; J2371; J2405; J2704